=== PATIENT | male | born 2000 | race Caucasian/White ===

== ENCOUNTER 2024-08-09 20:35 | Inpatient (IN) | payer OTHER ==
[2024-08-09 21:11] VITALS: BMI 18.6
[2024-08-09] MEDS: TRIMETHOBENZAMIDE HCL 200MG/2ML INJ IM ONE (21:49)
[2024-08-09] MEDS ORDERED: diazePAM 5 MG TABLET ONE (21:50)
[2024-08-09] MEDS ORDERED: methaDONE HCL 10 MG TABLET (FOR DETOX USE ONLY) ONE (21:51)
[2024-08-09] MEDS ORDERED: IBUPROFEN 400 MG TABLET (FP) PO PRN (21:58)
[2024-08-09] MEDS ORDERED: POLYETHYLENE GLYCOL (HEALTHYLAX) 3350 17 GM PACKET PO PRN (21:58)
[2024-08-09] MEDS ORDERED: NALOXONE (NARCAN) HCL 4 MG/0.1 ML SPRAY NS PRN (21:58)
[2024-08-09] MEDS ORDERED: BENZOCAINE/MENTHOL (CHLORASEPTIC ) LOZENGE MM PRN (21:58)
[2024-08-09] MEDS ORDERED: BENZONATATE 200 MG CAPSULE PO PRN (21:58)
[2024-08-09] MEDS ORDERED: guaiFENesin 600 MG TABLET.ER (FP) PO PRN (21:58)
[2024-08-09] MEDS ORDERED: BISMUTH SUBSALICYLATE 524 MG/30 ML PO PRN (21:58)
[2024-08-09] MEDS ORDERED: MAG HYDROX/AL HYDROX/SIMETH 30 ML UNIT-DOSE CUP PO PRN (21:58)
[2024-08-09] MEDS ORDERED: DICYCLOMINE HCL 10 MG CAPSULE PO PRN (21:58)
[2024-08-09] MEDS ORDERED: NALOXONE HCL 0.4 MG/ML VIAL IM PRN (21:58)
[2024-08-09] MEDS ORDERED: NICOTINE POLACRILEX 2 MG GUM BUC PRN (21:58)
[2024-08-09] MEDS ORDERED: LOPERAMIDE HCL 2 MG CAPSULE PO PRN (21:58)
[2024-08-09] MEDS ORDERED: ONDANSETRON *ODT* 4 MG TABLET SL PRN (21:58)
[2024-08-09] MEDS ORDERED: MAGNESIUM HYDROX 2400MG/30ML ORAL SUSPENSION 30 ML CUP PO PRN (21:58)
[2024-08-09] MEDS: methaDONE HCL 10 MG TABLET (FOR DETOX USE ONLY) PO ONE (22:01)
[2024-08-09] MEDS: diazePAM 5 MG TABLET PO ONE (22:01)
[2024-08-09] MEDS ORDERED: hydrOXYzine PAMOATE 25 MG CAPSULE (FP) PO ONE (22:44)
[2024-08-09] MEDS ORDERED: MELATONIN 5 MG TABLETS ONE (22:44)
[2024-08-09] MEDS: MELATONIN 5 MG TABLETS PO SCH (23:00)
[2024-08-09] MEDS: hydrOXYzine PAMOATE 25 MG CAPSULE (FP) PO PRN (23:00)
[2024-08-09] MEDS: THIAMINE 100 MG TABLET PO SCH (23:01)
[2024-08-09] MEDS: cloNIDine HCL 0.1 MG TABLET PO PRN (23:31)
[2024-08-09] MEDS: METHOCARBAMOL 500 MG TABLET PO PRN (23:31)
[2024-08-10] MEDS: IBUPROFEN 600 MG TABLET (FP) PO PRN (00:23)
[2024-08-10] MEDS: PRENATAL VITAMINS W/ FOLIC ACID TABLET (FP) PO SCH (09:46)
[2024-08-10] MEDS: NICOTINE 21 MG/24 HOURS TOPICAL PATCH TD SCH (09:46)
[2024-08-10] MEDS: diazePAM 5 MG TABLET PO PRN ×2 (10:27→23:27)
[2024-08-10 13:48] LABS: HEMATOCRIT 40.1 % (35.4-49); HEMOGLOBIN 13.5 GM/dL (11.7-16.9); MCH 31.2 pg (25.7-33.7); MCHC 33.7 g/dl (32.0-35.9); MEAN CELL VOLUME 92.5 fl (80-96); MEAN PLT VOLUME 9.4 fl (7.5-11.1); PLATELET COUNT 292 10^3/uL (134-434); RBC 4.33 M/mm3 (4.00-5.60); RDW 12.6 % (11.9-15.9); WHITE BLOOD COUNT 12.7 K/mm3 (4.0-10.0)
[2024-08-10 14:49] LABS: CHLORIDE 103 mmol/L (98-107); SODIUM 136 mmol/L (136-145)
[2024-08-10 14:52] LABS: ALBUMIN 3.9 g/dl (3.4-5.0); ANION GAP 6 mmol/L (4-13); BLOOD UREA NITROGEN 12.4 mg/dL (7-18); CALCIUM 9.4 mg/dL (8.5-10.1); CO2 26 mmol/L (21-32); GLUCOSE,RANDOM 176 mg/dL (74-106)
[2024-08-10 14:55] LABS: CREATININE 0.8 mg/dL (0.55-1.3); SGOT/AST 42 U/L (15-37); SGPT/ALT 24 U/L (13-61)
[2024-08-10 14:57] LABS: ALK PHOS 79 U/L (45-117); BILIRUBIN,TOTAL 0.6 mg/dL (0.2-1); TOT PROT 7.4 g/dl (6.4-8.2)
[2024-08-10] MEDS: MELATONIN 5 MG TABLETS PO ONE (23:28)
[2024-08-11] MEDS: METHOCARBAMOL 750 MG TABLET PO PRN (01:24)
[2024-08-11] MEDS ORDERED: P-EPHED 60MG/TRIPROLIDI 2.5MG TABLET PO PRN (09:23)
[2024-08-11] MEDS: methaDONE HCL 10 MG TABLET (FOR DETOX USE ONLY) PO ONE (09:49)
[2024-08-11] MEDS: SUVOREXANT 5 MG TABLET PO PRN (22:25)
[2024-08-12] MEDS: ACETAMINOPHEN 325 MG TABLET (FP) PO PRN (03:00)
[2024-08-12] MEDS: GABAPENTIN 100 MG CAPSULE PO SCH (13:41)
[2024-08-13 06:46] VITALS: PULSE 78
[2024-08-13] MEDS: methaDONE HCL 10 MG TABLET (FOR DETOX USE ONLY) PO ONE (09:05)
[2024-08-13 09:09] VITALS: BP 119/79; RESP 18; TEMP 97.8
== END 2024-08-13 09:58 | disposition home or self-care (01) | DRG 773 ==
LOC: YASAS 20:35 → Y3N 22:12
PROVIDERS: ADMIT Allergy & Immunology; ATTEND Surgery
PROC: HZ2ZZZZ Detoxification Services for Substance Abuse Treatment (ICD-10-PCS; principal; 2024-08-09)
DX: F11.23 Opioid dependence with withdrawal (principal); F12.20 Cannabis dependence, uncomplicated; F17.210 Nicotine dependence, cigarettes, uncomplicated; F41.9 Anxiety disorder, unspecified; F32.A Depression, unspecified
CPT/HCPCS: 36415; 80053; 80305; 80307; 82962; 85027; 86780; 93005; 93010